=== PATIENT | female | born 1975 | race Caucasian/White ===

== ENCOUNTER 2024-02-19 13:42 | Emergency (ER) | payer BC, OTHER ==
[2024-02-19 13:46] VITALS: RESP 22; TEMP 97.9
--- NOTE | 2024-02-19 14:44 | ED ---
Female Urogenital HPI - General Source: patient, RN notes reviewed Mode of arrival: ambulatory Limitations: no limitations <Sanjana Fam - Last Filed: 02/19/24 14:42> <Carmela Sarah - Last Filed: 02/21/24 13:57> - General Chief complaint: Vaginal Bleeding Stated complaint: vaginal bleeding Time Seen by Provider: 02/19/24 14:42 - History of Present Illness Initial comments: Quick [id number] female presenting to the ER chief complaint of heavy vaginal bleeding x 3 days. States she is going through more than 1 pad per hour for more than 2 hours and passing dime sized clots. Patient does have a history of PCOS. States she also feels she may have a tampon stuck in her vagina. (Sanjana Fam) Pt is a pleasant 48 y/o female hx PCOS presenting today for heavy vaginal bleeding x3-4 days. Bleeding worsened today. Describes passing 1/2 dollars sized clots today. Now going though more than 1 pad or tampon per hour. Now feels weak, dizzy and lightheaded. No hx easy bleeding/bruising disorders. Not on thinners. States very low chance of however has had prior miscarriag es. Denies hx STIs. No vaginal discharge or dysuria. Endorses associated lower abdominal/pelvic cramping. No fevers. States that she has been using and switching out so many tampons/pads that she is worried she has one stuck in her vaginal, feels like she has one possible retained in her vagina. 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 (Carmela Sarah) - Related Data Previous Rx's Medication Instructions Recorded Tranexamic Acid [Lysteda] 650 mg PO TID 5 Days #15 tablet 02/19/24 Allergies Allergy/AdvReac Type Severity Reaction Status Date / Time No Known Allergies Allergy Verified 02/19/24 13:46 Review of Systems ROS Other: All systems not noted in ROS Statement are negative. <Sanjana Fam - Last Filed: 02/19/24 14:42> ROS Other: All systems not noted in ROS Statement are negative. Constitutional: Reports: weakness. Denies: fever Respiratory: Denies: dyspnea Cardiovascular: Denies: chest pain Gastrointestinal: Reports: abdominal pain. Denies: nausea, vomiting Genitourinary: Reports: abnormal menses. Denies: dysuria, discharge <Carmela Sarah - Last Filed: 02/21/24 13:57> ROS Statement: Those systems with pertinent positive or pertinent negative responses have been documented in the HPI. Past Medical History Past Medical History: No Reported History History of Any Multi-Drug Resistant Organisms: None Reported Additional Past Surgical History / Comment(s): Ovary LT. Past Psychological History: No Psychological Hx Reported Smoking Status: Never smoker Past Alcohol Use History: Rare Past Drug Use History: None Reported <Sanjana Fam - Last Filed: 02/19/24 14:42> General Exam Limitations: no limitations <Sanjana Fam - Last Filed: 02/19/24 14:42> <Carmela Sarah - Last Filed: 02/21/24 13:57> - General Exam Comments Initial Comments: Visual Physical Exam Vital signs reviewed General: Well-appearing, nontoxic, no acute distress. Head: Normocephalic, atraumatic Eyes: PERRLA, EOMI ENT: Airway patent Chest: Nonlabored breathing Skin: No visual rash, normal skin tone Neuro: Alert and oriented 3 Musculoskeletal: No gross abnormalities (Sanjana Fam) PE: CONSTITUTIONAL: No apparent distress, well appearing SKIN: Warm, dry, no jaundice, hives or petechiae EYES: Pupils are equally round, extraocular movements intact without nystagmus, clear conjunctiva,, non-icteric sclera HENT: Normocephalic, atraumatic, moist mucus membranes, oropharynx clear without exudates NECK: , Full range of motion, normal appearance PULMONARY: Clear to auscultation without wheezes, rhonchi, or rales, normal excursion, no accessory muscle use and no stridor CARDIOVASCULAR: Regular rate, rhythm, normal S1 and S2. No appreciated murmurs, rubs or gallops. Strong radial pulses with intact distal perfusion. No lower extremity edema GASTROINTESTINAL: Soft, non-tender, minimal TTP suprapubic region, o palpable masses, no rebound or guarding. No hepatosplenomegaly : Exam performed with Flor MENDES as retail wireless sales representative, limited by patient position, no pelvic exam bed available, regular bed was used; External exam without abnormality, no labial erythema or lacerations, unable to visualize cervical os, on insertion of speculum, 1 tbsp blood filled speculim, no foreign body noted, no lacerations observed MUSCULOSKELETAL: Extremities have no gross deformity, no edema, redness, or swelling. NEUROLOGIC:_a/o x 3, GCS 15, normal mentation and speech. Moves all extremities x 4 without motor or sensory deficit PSYCHIATRIC:_normal mood and affect, thought process is clear and linear (Carmela Vaz) Course Vital Signs 02/19/24 02/19/24 13:43 19:54 Temperature 97.9 F 97.9 F Pulse Rate 120 H 105 H Respiratory 22 22 Rate Blood Pressure 190/90 172/90 O2 Sat by Pulse 98 97 Oximetry Medical Decision Making <Sanjana Fam - Last Filed: 02/19/24 14:42> - Lab Data Result diagrams: 02/19/24 15:39 02/19/24 15:39 <Carmela Sarah - Last Filed: 02/21/24 13:57> - Medical Decision Making I completed the quick note portion of this chart signed Sanjana Fam PA-C (Sanjana Fam) Was pt. sent in by a medical professional or institution (LIAN Prince, SENIOR PROJECT ARCHITECT, urgent care, hospital, or skilled nursing...) When possible be specific @ -No Did you speak to anyone other than the patient for history (EMS, parent, family, police, friend...)? What history was obtained from this source @ -No Did you review nursing and triage notes (agree or disagree)? Why? @ -I reviewed and agree with nursing and triage notes Were old charts reviewed (outside hosp., previous admission, EMS record, old EKG, old radiological studies, urgent care reports/EKG's, skilled nursing records)? Report findings @ -No old charts were reviewed none available for review Differential Diagnosis (chest pain, altered mental status, abdominal pain women, abdominal pain men, vaginal bleeding, weakness, fever, dyspnea, syncope, headache, dizziness, GI bleed, back pain, seizure, CVA, palpatations, mental health, musculoskeletal)? @ -Differential dx remains broad however top considerations include spontaneous , threatened , molar , ectopic , placenta previa, dysfunctional uterine bleeding\, uterine fibroids, this is not meant to be an all-inclusive list. EKG interpreted by me (3pts min.). @ -As above X-rays interpreted by me (1pt min.). @ -None done CT interpreted by me (1pt min.). @ -None done U/S interpreted by me (1pt. min.). @ -No abnormality noted, no pole or gestational sac, no masses What testing was considered but not performed or refused? (CT, X-rays, U/S, labs)? Why? @ -None What meds were considered but not given or refused? Why? @ -None Did you discuss the management of the patient with other professionals (professionals i.e. , PA, SENIOR PROJECT ARCHITECT, lab, RT, psych nurse, social media senior associate, reproduction specialist, teacher, vice squad police officer, case supervisor)? Give summary @ -Discussed case with Dr. Don, psychiatric social worker supervisor, appreciated recs, recs 1G TXA, observe, can admit for obs vs discharge based on patient stability and shared decision making. If d/c'd can discharge home with 650 mg TXA TID for up to 5 days, will call his office and give them patient's information to help arrange close follow up visit if discharged Was smoking cessation discussed for >3mins.? @ -No Was critical care preformed (if so, how long)? @ Yes, 45 minutes, spent assessing patient, reassessment, discussion with consultants, interpretation of lab values, etc Were there social determinants of health that impacted care today? How? (Homelessness, low income, unemployed, alcoholism, drug addiction, transportation, low edu. Level, literacy, decrease access to med. care, half-way, rehab)? @ -No Was there de-escalation of care discussed even if they declined (Discuss DNR or withdrawal of care, Hospice)? @ -No What co-morbidities impacted this encounter? (DM, HTN, Smoking, COPD, CAD, Cancer, CVA, ARF, Chemo, Hep., AIDS, mental health diagnosis, sleep apnea, morbid obesity)? @ -Obesity PCOS Was patient admitted / discharged? Hospital course, mention meds given and route, prescriptions, significant lab abnormalities, going to OR and other pertinent info. @ -Hospital course discharged Patient is a pleasant 48 y/o female hx PCOS presenting today for 3-4 days heavy vaginal bleeding and concern for possible vaginal foreign body. Pt initially tachycardic, HR 120 bpm, BP hypertensive, no hypoxia. Suspect tachycardia could most likely be 2/2 pain vs hypovolemia. On my assessment patient well appearing, in NAD, resting comfortably. PE shows LCTAB, respirations unlabored, 2+ radial pulses, extremities well perfused, normal S1/2 on cardiac exam, normal rate, soft abdomen with active bowel sounds, minimal suprapubic TTP, exam performed with RN at bedside, Flor. exam is limited by patient positioning as there is no pelvic bed available, and body habitus. Unable to visualize the cervical os, however no foreign body noted, speculum did fill with approx 1 tbsp blood on exam. Discussed with patient plan for IV fluids, labs, ultrasound. Pt politely declined pain control at this point. Reviewed labs, significant for microcytic anemia, hgb 7.8, no prior for comparison, mild hyponatremia Na 133, negative hcg. No leukocytosis. US reviewed. Read by radiologist as no acute process, dominant right ovarian follicle. Updated pt to findings and plan for consult to corporate coordinator. Pt agreeable with pain control at this point, ordered toradol. Of note, US was transvaginal and building analyst/supervisor did not alert me to presence of any foreign body either. I did ask patient if she knew what her most recent hgb measurement was however she is unsure, though does state she has a hx of anemia. Unsure if hgb is an acute drop or chronic. Am considering admitting pt for observation but will discuss with O b-professor of art and patient. Discussed with Dr. Don, patient could be admitted after TXA for observat ion versus discharge home with oral TXA and outpatient follow-up. Further notes on conversation above. Updated patient to conversation with Dr. Don. Patient would prefer to trial IV TXA and possibly discharge home if bleeding slows. Requests I call Dr. Don to confirm if discharged, would be able to see corporate coordinator in clinic. Called Dr. Don back, he will call his office and facilitate follow up appointment, of note, limited amount of physicians in their clinic in the next few days. On reassessment, pt states bleeding has slowed. Her symptoms of weakness/lightheadedness/dizziness have resolved. Discussed with patient admission to monitor hgb and bleeding vs discharge home w/ close follow up, noting conversation with Dr. Don and that if patient unable to get in to see Ob-professor of art in clinic in next 48 hours, she should return to the ED for reassessment. Patient prefers and feels comfortable with discharge home at this point. We discussed signs and symptoms warranting return to the ED, included in discharge paperwork. Discussed discharge home with oral TXA, to take up to three times daily for only up to 5 days and to stop taking when bleeding signifcant slows or resolves if that occurs before 5 days. Additionally, I did discuss with her increased clotting risk with TXA. All questions were answered and patient was discharged home in stable condition. Undiagnosed new problem with uncertain prognosis? @ -No Drug Therapy requiring intensive monitoring for toxicity (Heparin, Nitro, Insulin, Cardizem)? @ -No Were any procedures done? @ -No Diagnosis/symptom? @ -Abnormal uterine bleeding Acute, or Chronic, or Acute on Chronic? @ -Acute Uncomplicated (without systemic symptoms) or Complicated (systemic symptoms)? @ Complicated Side effects of treatment? @ -No Exacerbation, Progression, or Severe Exacerbation? @ -No Poses a threat to life or bodily function? How? (Chest pain, [place], [place], pneumonia, PE, COPD, DKA, ARF, appy, cholecystitis, CVA, Diverticulitis, Homicidal, Suicidal, threat to staff... and all critical care pts) @ -Potentially, if left untreated could have lead to hemorrhagic shock. (Carmela Sarah) - Lab Data Lab Results 02/19/24 02/19/24 02/19/24 Range/Units 15:35 15:39 15:39 WBC 9.3 (3.8-10.6) k/uL RBC 3.73 L (3.80-5.40) m/uL Hgb 7.8 L (11.4-16.0) gm/dL Hct 26.5 L (34.0-46.0) % MCV 70.9 L (80.0-100.0) fL MCH 20.9 L (25.0-35.0) pg MCHC 29.4 L (31.0-37.0) g/dL RDW 17.6 H (11.5-15.5) % Plt Count 560 H (150-450) k/uL MPV 7.0 Neutrophils % 69 % Lymphocytes % 23 % Monocytes % 4 % Eosinophils % 1 % Basophils % 0 % Neutrophils # 6.4 (1.3-7.7) k/uL Lymphocytes # 2.2 (1.0-4.8) k/uL Monocytes # 0.4 (0-1.0) k/uL Eosinophils # 0.1 (0-0.7) k/uL Basophils # 0.0 (0-0.2) k/uL Hypochromasia Marked Anisocytosis Slight Microcytosis Marked PT (10.0-12.5) sec INR (<1.2) APTT (22.0-30.0) sec Sodium 133 L (137-145) mmol/L Potassium 3.9 (3.5-5.1) mmol/L Chloride 106 (98-107) mmol/L Carbon Dioxide 23 (22-30) mmol/L Anion Gap 4 mmol/L BUN 10 (7-17) mg/dL Creatinine 0.62 (0.52-1.04) mg/dL Est GFR (CKD-EPI)AfAm >90 (>60 ml/min/1.73 sqM) Est GFR (CKD-EPI)NonAf >90 (>60 ml/min/1.73 sqM) Glucose 104 H (74-99) mg/dL Calcium 9.1 (8.4-10.2) mg/dL Total Bilirubin 0.4 (0.2-1.3) mg/dL AST 25 (14-36) U/L ALT 18 (4-34) U/L Alkaline Phosphatase 79 (38-126) U/L Total Protein 7.4 (6.3-8.2) g/dL Albumin 3.9 (3.5-5.0) g/dL HCG, Qual Not Detected Blood Type A Positive Blood Type Confirm Blood Type Recheck No Previous Record Bld Type Recheck Status CABO Indicated Antibody Screen NEGATIVE Spec Expiration Date 02/22/2024234602/19/24 02/19/24 Range/Units 15:39 15:41 WBC (3.8-10.6) k/uL RBC (3.80-5.40) m/uL Hgb (11.4-16.0) gm/dL Hct (34.0-46.0) % MCV (80.0-100.0) fL MCH (25.0-35.0) pg MCHC (31.0-37.0) g/dL RDW (11.5-15.5) % Plt Count (150-450) k/uL MPV Neutrophils % % Lymphocytes % % Monocytes % % Eosinophils % % Basophils % % Neutrophils # (1.3-7.7) k/uL Lymphocytes # (1.0-4.8) k/uL Monocytes # (0-1.0) k/uL Eosinophils # (0-0.7) k/uL Basophils # (0-0.2) k/uL Hypochromasia Anisocytosis Microcytosis PT 10.5 (10.0-12.5) sec INR 1.0 (<1.2) APTT 23.2 (22.0-30.0) sec Sodium (137-145) mmol/L Potassium (3.5-5.1) mmol/L Chloride (98-107) mmol/L Carbon Dioxide (22-30) mmol/L Anion Gap mmol/L BUN (7-17) mg/dL Creatinine (0.52-1.04) mg/dL Est GFR (CKD-EPI)AfAm (>60 ml/min/1.73 sqM) Est GFR (CKD-EPI)NonAf (>60 ml/min/1.73 sqM) Glucose (74-99) mg/dL Calcium (8.4-10.2) mg/dL Total Bilirubin (0.2-1.3) mg/dL AST (14-36) U/L ALT (4-34) U/L Alkaline Phosphatase (38-126) U/L Total Protein (6.3-8.2) g/dL Albumin (3.5-5.0) g/dL HCG, Qual Blood Type Blood Type Confirm A Positive Blood Type Recheck Bld Type Recheck Status Antibody Screen Spec Expiration Date Disposition <Sanjana Fam - Last Filed: 02/19/24 14:42> Is patient prescribed a controlled substance at d/c from ED?: No <Carmela Sarah - Last Filed: 02/21/24 13:57> Clinical Impression: Dysfunctional uterine bleeding Disposition: HOME SELF-CARE Condition: Stable Instructions (If sedation given, give patient instructions): Dysmenorrhea (ED) Additional Instructions: Every disease is a spectrum and a small chance still exists that a serious condition could develop, for this reason, please monitor yourself closely for new, changing or worsening symptoms, symptoms that persist beyond 48 hours, lightheadedness, dizziness, shortness of breath, palpitations, feeling like you are going to pass out, bleeding through more than 1 pad an hour for greater than 2 hours foul-smelling vaginal discharge, fever, inability to tolerate/keep down fluids or your medications, inability to follow up with outpatient providers as instructed and should you experience these symptoms or should you have any further concerns for your wellbeing please return to the ED or call 911 immediat antione. PLEASE call your primary care physician as soon as possible to arrange / discuss plan for followup appointment. Appointment in the next 1-3 days is strongly encouraged if possible. PLEASE let us know here before you leave if there is anything further we can do to be of any assistance. Take care and feel Better! Prescriptions: Tranexamic Acid [Lysteda] 650 mg PO TID 5 Days #15 tablet Referrals: [facility] [NON-STAFF] - 1-2 days [facility] [NON-STAFF] - 1-2 days None,Stated [Primary Care Provider] - 1-2 days [facility] [Provider Group] - 1-2 days Forms: [facility] PCPs
[2024-02-19 16:29] LABS: Anisocytosis Slight; Basophils % (A) 0 %; Eosinophils # (A) 0.1 k/uL (0-0.7); Eosinophils % (A) 1 %; HCT 26.5 % (34.0-46.0); HGB 7.8 gm/dL (11.4-16.0); Hypochromasia Marked; Lymphocytes # (A) 2.2 k/uL (1.0-4.8); Lymphocytes % (A) 23 %; MCH 20.9 pg (25.0-35.0); MCHC 29.4 g/dL (31.0-37.0); MCV 70.9 fL (80.0-100.0); Microcytosis Marked; Monocytes # (A) 0.4 k/uL (0-1.0); Monocytes % (A) 4 %; Neutrophils # (A) 6.4 k/uL (1.3-7.7); Neutrophils % (A) 69 %; Platelet Count 560 k/uL (150-450); RBC 3.73 m/uL (3.80-5.40); RDW 17.6 % (11.5-15.5); WBC 9.3 k/uL (3.8-10.6)
[2024-02-19 16:38] LABS: Partial Thromboplastin Time 23.2 sec (22.0-30.0); Prothrombin Time 10.5 sec (10.0-12.5)
[2024-02-19 16:42] LABS: ALT 18 U/L (4-34); AST 25 U/L (14-36); African American GFR (CKD) >90 (>60 ml/min/1.73 sqM); Albumin 3.9 g/dL (3.5-5.0); Alkaline Phosphatase 79 U/L (38-126); Anion Gap 4 mmol/L; Blood Urea Nitrogen 10 mg/dL (7-17); Calcium 9.1 mg/dL (8.4-10.2); Carbon Dioxide 23 mmol/L (22-30); Chloride 106 mmol/L (98-107); Glucose 104 mg/dL (74-99); Non-African American GFR(CKD) >90 (>60 ml/min/1.73 sqM); Potassium 3.9 mmol/L (3.5-5.1); Sodium 133 mmol/L (137-145); Total Bilirubin 0.4 mg/dL (0.2-1.3); Total Protein 7.4 g/dL (6.3-8.2)
--- NOTE | 2024-02-19 16:47 | US ---
EXAMINATION TYPE: US pelvis complete transvag DATE OF EXAM: 02/19/2024 COMPARISON: NONE CLINICAL INDICATION: Female, 48 years old with history of menorrhagia; PCOS, left ovary removed due t o shemar cyst, has had heavy bleeding x 12 days, 350lbs - difficult TECHNIQUE: TV/TA. Transabdominal sonographic images of the pelvis were acquired. Transvaginal sono graphic images Date of LMP: 12 days ago EXAM MEASUREMENTS: Uterus: 9.3 x 5.8 x 5.1 cm Endometrial Stripe: 2.0 cm Right Ovary: 3.2 x 3.3 x 3.2 cm Left Ovary: Surgically absent 1. Uterus: Anteverted wnl - limited views due to habitus 2. Endometrium: wnl 3. Right Ovary: 2.7 x 2.5 x 1.9cm simple cyst versus dominate follicle 4. Left Ovary: Surgically absent 5. Bilateral Adnexa: wnl 6. Posterior cul-de-sac: wnl IMPRESSION: 1. No evidence for acute process. 2. Dominant right ovarian dominant follicle measuring up to 2.7 cm. [facility], , 02/19/2024 4:45 PM
[2024-02-19 17:09] LABS: HCG,Qualitative Serum Not Detected
[2024-02-19] MEDS: SODIUM CHLORIDE 0.9% 1,000 ML IV STA (17:17)
[2024-02-19] MEDS: KETOROLAC 15 MG/ML 1 ML VIAL IVP STA (17:53)
[2024-02-19] MEDS: TRANEXAMIC 1,000 MG/100ML-NACL 1,000 MG in SALINE 1 100ML.BAG IVPB ONE (17:55)
[2024-02-19 19:55] VITALS: BP 172/90; PULSE 105
== END 2024-02-19 20:01 | disposition home or self-care (01) ==
LOC: EC 13:42
CPT/HCPCS: 36415; 76830; 76856; 80053; 84703; 85025; 85610; 85730; 86850; 86900; 86901; 96361; 96366; 96375; 99284